=== PATIENT | female | born 1950 | race Caucasian/White ===

== ENCOUNTER 2017-08-07 11:09 | Emergency (ER) | payer OTHER, SELFPAY | END 2017-08-07 13:02 | disposition home or self-care (01) | PROVIDERS: Emergency Provider Emergency Medicine; Visit Provider Emergency Medicine | DX: M79.605 Pain in left leg (principal); W17.89XA Other fall from one level to another, initial encounter; Y92.832 Beach as the place of occurrence of the external cause | CPT/HCPCS: 73590; 99283 ==